=== PATIENT | female | born 1960 | race Caucasian/White ===

== ENCOUNTER 2018-05-03 20:42 | Emergency (ER) | payer OTHER ==
[~2018-05-03] VITALS: Ht 152.4 cm; Wt 67.1 kg
--- NOTE | ~2018-05-03 | EKG ---
[address] [address] ELECTROCARDIOGRAM REPORT Name: RIZWANAChelseaTALYADALE LEDA MCKEON [facility] #: [facility] [id number] Admission: 05/03/18 Attend Phys: Discharge: 05/03/18 Date of : 60 Report #: [id number] THIS REPORT FOR: //name// [facility] ED Test Date: 2018-05-03 Test Time: 20:58:58 Pat Name: DALE SAMUEL Department: Room: Gender: F [employer] Engineer: KIAN : 1960 Requested By: Prudencio aGrrett Order Number: [id number] MD: Narciso Obrien Measurements Intervals [place] Rate: 66 P: 15 MI: 183 QRS: 13 QRSD: 99 T: 49 QT: 457 QTc: 479 Interpretive Statements Sinus rhythm Probable left ventricular hypertrophy No previous ECG available for comparison Electronically Signed On 05-05-2018 17:34:32 CDT by Narciso Obrien [email or web address] <ELECTRONICALLY SIGNED> By: Narciso Obrien MD 05/05/18 1734 57 57 Narciso Obrien MD /[email or web address]
[2018-05-03 21:42] LABS: HEMATOCRIT 37.5 % (37.0-47.0); HEMOGLOBIN 13.2 gm/dL (12.0-15.0); MCHC 35.3 g/dL (28.0-37.0); MCV 87.8 fL (80.0-100.0); RBC 4.27 mil/uL (4.20-5.00); RDW 13.2 % (10.5-14.5); WBC 9.7 thou/uL (4.0-11.0)
[2018-05-03 21:46] LABS: ANION GAP 3 mmol/L (7-16); BUN 10 mg/dL (7-18); CALCIUM 9.3 mg/dL (8.5-10.1); CHLORIDE 91 mmol/L (98-107); CO2 31 mmol/L (21-32); CREATININE 0.7 mg/dL (0.6-1.0); GLUCOSE 95 mg/dL (74-106); POTASSIUM 4.1 mmol/L (3.5-5.1); SODIUM 125 mmol/L (136-145)
[2018-05-03 21:54] LABS: SGOT 24 U/L (15-37); SGPT 46 U/L (30-65); TOTAL BILIRUBIN 0.5 mg/dL (<0.1-1.0); TOTAL PROTEIN 7.5 g/dL (6.4-8.2); TROPONIN-I <0.06 ng/mL (<0.06)
[2018-05-03] MEDS ORDERED: VALIUM5 MG PO (22:51)
[2018-05-03] MEDS ORDERED: NORVASC5 MG PO (22:51)
[2018-05-03 22:59] VITALS: BP 139/69
== END 2018-05-03 23:02 | disposition home or self-care (01) ==
LOC: ER 20:42
PROVIDERS: Emergency Medicine
DX: I10 Essential (primary) hypertension (principal); Z90.710 Acquired absence of both cervix and uterus